=== PATIENT | female | born 2000 | race African-American/Black ===

== ENCOUNTER 2020-12-21 17:13 | Emergency (ER) | payer BC, MEDICAID ==
[~2020-12-21] VITALS: Ht 162.6 cm; Wt 60.0 kg
[2020-12-21 17:23] VITALS: BP 126/56
[2020-12-21] MEDS ORDERED: ACETAMINOPHEN 325MG TABLET PO ONE (18:15)
== END 2020-12-21 19:11 | disposition left against medical advice (07) ==
LOC: ER 17:13
DX: S05.12XA Contusion of eyeball and orbital tissues, left eye, initial encounter (principal); Y04.0XXA Assault by unarmed brawl or fight, initial encounter; Y93.89 Activity, other specified; Y92.89 Other specified places as the place of occurrence of the external cause; Y99.8 Other external cause status
CPT/HCPCS: 81025; 99283